=== PATIENT | female | born 1965 | race Caucasian/White ===

== ENCOUNTER 2019-11-06 17:58 | Emergency (ER) | payer MEDICAID ==
[~2019-11-06] VITALS: Ht 167.6 cm; Wt 64.0 kg
[2019-11-06] MEDS ORDERED: atenolol 25mg tablet PO ONE (19:05)
[2019-11-06] MEDS ORDERED: ATEN-169 PO (19:11)
[2019-11-06 19:17] VITALS: BP 110/68
== END 2019-11-06 19:31 | disposition home or self-care (01) ==
LOC: ER 17:59
DX: I47.1 Supraventricular tachycardia (principal); Z76.0 Encounter for issue of repeat prescription; Z79.899 Other long term (current) drug therapy; Z88.0 Allergy status to penicillin
CPT/HCPCS: 99283